=== PATIENT | female | born 1990 | race Caucasian/White ===

== ENCOUNTER 2021-11-22 14:10 | Inpatient (IN) | payer OTHER ==
[2021-11-22] MEDS ORDERED: CITRIC ACID/SODIUM CITRATE 30 ML UNIT-DOSE CUP PO ONE (14:55)
[2021-11-22] MEDS ORDERED: ELECTROLYTE-148 SOLN 1,000 ML IV SCH (15:00)
[2021-11-22 15:09] VITALS: BMI 32.5
[2021-11-22] MEDS ORDERED: ceFAZolin SODIUM 1 GM VIAL ONE (18:19)
[2021-11-22] MEDS ORDERED: ONDANSETRON 4 MG/2 ML VIAL ONE (18:19)
[2021-11-22] MEDS ORDERED: ePHEDrine SULFATE 50 MG/1 ML AMPULE ONE ×2 (18:22)
[2021-11-22] MEDS ORDERED: PHENYLEPHRINE HCL 10 MG/1 ML SINGLE DOSE VIAL ONE (18:26)
[2021-11-22] MEDS ORDERED: OXYTOCIN 20 UNITS in 0.9% NS 20 UNIT/1,000 ML INFUS.BAG IV ONE (19:15)
[2021-11-22 19:19] LABS: CORD BASE EXCESS -1.1 mmol/L (0-2); CORD HCO3 24.9 mmHg (20-29); CORD PCO2 46.1 mmHg (30-78); CORD pH 7.351 (7.14-7.44)
[2021-11-22] MEDS: OXYTOCIN 20 UNITS in 0.9% NS 20 UNIT/1,000 ML INFUS.BAG IV SCH (19:20)
[2021-11-22 19:21] LABS: CORD BASE EXCESS -1.5 mmol/L (0-2); CORD PCO2 43.1 mmHg (30-78); CORD pH 7.363 (7.14-7.44)
[2021-11-22] MEDS ORDERED: METHYLERGONOVINE MALEATE 0.2 MG/1 ML AMP IM PRN (19:24)
[2021-11-23] MEDS: ACETAMINOPHEN 325 MG TABLET (FP) PO PRN (02:19)
[2021-11-23] MEDS: OXYTOCIN 20 UNITS in 0.9% NS 20 UNIT/1,000 ML INFUS.BAG IV SCH (03:41)
[2021-11-23] MEDS: SIMETHICONE 80 MG TAB.CHEW (FP) PO PRN ×3 (06:36→19:44)
[2021-11-23] MEDS: IBUPROFEN 600 MG TABLET (FP) PO PRN ×5 (06:37→22:37)
[2021-11-23 07:58] LABS: BASO % 0.2 % (0-2.0); EOS % 1.3 % (0-4.5); HEMATOCRIT 33.2 % (32.4-45.2); HEMOGLOBIN 11.2 GM/dL (10.7-15.3); LYMPH % 19.1 % (8-40); MCH 29.9 pg (25.7-33.7); MCHC 33.7 g/dl (32.0-36.0); MEAN CELL VOLUME 88.6 fl (80-96); MEAN PLT VOLUME 8.9 fl (7.5-11.1); MONO % 6.6 % (3.8-10.2); NEUT % 72.8 % (42.8-82.8); PLATELET COUNT 141 10^3/uL (134-434); RBC 3.75 M/mm3 (3.60-5.2); RDW 13.9 % (11.6-15.6); WHITE BLOOD COUNT 9.2 K/mm3 (4.0-10.0)
[2021-11-23] MEDS: ENOXAPARIN NA (PORCINE) 40 MG/0.4 ML DISP.SYRIN SQ SCH (09:25)
[2021-11-23] MEDS: oxyCODONE HCL 5 MG TABLET PO PRN (19:44)
[2021-11-24] MEDS: oxyCODONE HCL 5 MG TABLET PO PRN ×4 (02:14→23:51)
[2021-11-24] MEDS: SIMETHICONE 80 MG TAB.CHEW (FP) PO PRN ×3 (07:59→20:19)
[2021-11-24] MEDS: BISACODYL 10 MG SUPP.RECT RC PRN ×2 (10:27→15:32)
[2021-11-24] MEDS: ENOXAPARIN NA (PORCINE) 40 MG/0.4 ML DISP.SYRIN SQ SCH (10:27)
[2021-11-24] MEDS: IBUPROFEN 600 MG TABLET (FP) PO PRN (13:20)
[2021-11-24] MEDS: ACETAMINOPHEN 325 MG TABLET (FP) PO PRN (15:31)
[2021-11-24] MEDS: SENNOSIDES/DOCUSATE COMBO (SENNA PLUS) TABLET (UD) PO SCH ×2 (20:19→22:05)
[2021-11-25] MEDS: SIMETHICONE 80 MG TAB.CHEW (FP) PO PRN ×2 (03:57→08:39)
[2021-11-25] MEDS: oxyCODONE HCL 5 MG TABLET PO PRN ×2 (03:57→08:39)
[2021-11-25 08:23] LABS: BASO % 0.1 % (0-2.0); EOS % 2.3 % (0-4.5); HEMATOCRIT 33.6 % (32.4-45.2); HEMOGLOBIN 11.3 GM/dL (10.7-15.3); LYMPH % 23.5 % (8-40); MCH 29.9 pg (25.7-33.7); MCHC 33.5 g/dl (32.0-36.0); MEAN CELL VOLUME 89.3 fl (80-96); MONO % 9.5 % (3.8-10.2); NEUT % 64.6 % (42.8-82.8); PLATELET COUNT 161 10^3/uL (134-434); RBC 3.77 M/mm3 (3.60-5.2); RDW 13.8 % (11.6-15.6); WHITE BLOOD COUNT 8.4 K/mm3 (4.0-10.0)
[2021-11-25] MEDS: IBUPROFEN 600 MG TABLET (FP) PO PRN (08:38)
[2021-11-25 10:03] VITALS: BP 116/55; PULSE 60; TEMP 98
[2021-11-25] MEDS: ENOXAPARIN NA (PORCINE) 40 MG/0.4 ML DISP.SYRIN SQ SCH (11:13)
== END 2021-11-25 13:10 | disposition home or self-care (01) | DRG 540 ==
LOC: JLDR 14:10 → J3W 21:18
PROVIDERS: ADMIT Obstetrics & Gynecology; ATTEND Obstetrics & Gynecology
PROC: 10D00Z1 Extraction of Products of Conception, Low, Open Approach (ICD-10-PCS; principal; 2021-11-22)
DX: O34.211 Maternal care for low transverse scar from previous cesarean delivery (principal); O98.52 Other viral diseases complicating childbirth; U07.1 COVID-19; O69.81X0 Labor and delivery complicated by cord around neck, without compression, not applicable or unspecified; Z3A.39 39 weeks gestation of pregnancy; Z37.0 Single live birth
CPT/HCPCS: 36415; 36600; 82803; 85025; 88307-TC

== ENCOUNTER 2023-11-20 20:20 | Emergency (ER) | payer OTHER ==
[2023-11-20 20:32] VITALS: BP 114/66; PULSE 84; RESP 18; TEMP 98.2; BMI 25.6
[2023-11-20] MEDS ORDERED: diazePAM 2 MG TABLET PO ONE (21:38)
[2023-11-20] MEDS ORDERED: KETOROLAC TROMETHAMINE 30 MG/1 ML VIAL IM ONE (21:38)
[2023-11-20] MEDS ORDERED: KETOROLAC TROMETHAMINE 30 MG/1 ML VIAL ONE (21:45)
[2023-11-20] MEDS ORDERED: diazePAM 2 MG TABLET ONE (21:45)
== END 2023-11-20 22:54 | disposition home or self-care (01) ==
LOC: JERFT 20:20
PROC: 3E0233Z Introduction of Anti-inflammatory into Muscle, Percutaneous Approach (ICD-10-PCS; principal; 2023-11-20)
DX: M54.2 Cervicalgia (principal); M54.50 Low back pain, unspecified; V49.40XA Driver injured in collision with unspecified motor vehicles in traffic accident, initial encounter; Y92.410 Unspecified street and highway as the place of occurrence of the external cause
CPT/HCPCS: 99284-25